=== PATIENT | female | born 1955 | race Caucasian/White ===

== ENCOUNTER → 2023-07-18 07:04 | Outpatient (REF) | payer MEDICARE, BC, SELFPAY ==
[2023-07-18 09:22] LABS: ALT (SGPT) 27 U/L (0-35); AST (SGOT) 32 U/L (14-36); Albumin 3.9 g/dl (3.5-5.0); Alkaline Phosphatase 74 U/L (38-126); Blood Urea Nitrogen 18 mg/dl (7-17); Calcium 9.8 mg/dl (8.4-10.2); Carbon Dioxide 27 mmol/L (22-30); Chloride 104 mmol/L (98-107); Glucose 97 mg/dl (70-99); HDL Cholesterol 46 mg/dl; LDL Cholesterol, Calculated 95 mg/dl; Potassium 4.3 mmol/L (3.5-5.1); Sodium 139 mmol/L (135-145); Total Cholesterol 164 mg/dl (50-199); Total Protein 6.6 g/dl (6.3-8.2); Triglyceride 115 mg/dl (10-149); Very Low Density Lipoprotein 23 mg/dl (0-30); eGFR > 60.00
[2023-07-18 09:51] LABS: TSH Reflex To Free T4 4.76 uIU/ml (0.47-4.68)
[2023-07-18 10:20] LABS: Free T4 0.89 ng/dl (0.78-2.19)
== END ==
LOC: HWLAB 07:04
PROVIDERS: ATTENDING PHYSICIAN Nurse Practitioner Family
DX: Z00.00 Encounter for general adult medical examination without abnormal findings (principal); E78.5 Hyperlipidemia, unspecified; E03.9 Hypothyroidism, unspecified
CPT/HCPCS: 36415; 80053; 80061; 84439; 84443

== ENCOUNTER → 2023-08-22 12:41 | Outpatient (REF) | payer MEDICARE, BC, SELFPAY | LOC: WDC 12:41 | PROVIDERS: ATTENDING PHYSICIAN Nurse Practitioner Family | DX: Z12.31 Encounter for screening mammogram for malignant neoplasm of breast (principal); M85.80 Other specified disorders of bone density and structure, unspecified site; M85.88 Other specified disorders of bone density and structure, other site | CPT/HCPCS: 77063; 77067; 77080 ==

== ENCOUNTER → 2023-09-04 08:45 | Outpatient (REF) | payer MEDICARE, BC, SELFPAY | LOC: WDC 08:45 | PROVIDERS: ATTENDING PHYSICIAN Nurse Practitioner Family | DX: R92.8 Other abnormal and inconclusive findings on diagnostic imaging of breast (principal) | CPT/HCPCS: 76642 ==

== ENCOUNTER → 2023-09-08 09:46 | Outpatient (REF) | payer MEDICARE, BC, SELFPAY ==
--- NOTE | 2023-09-11 09:16 | OID.BR.INTR ---
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
- -
Did not meet patient at time of biopsy. Will follow up per protocol.
== END ==
LOC: WDC 09:46
PROVIDERS: ATTENDING PHYSICIAN Nurse Practitioner Family
DX: N63.12 Unspecified lump in the right breast, upper inner quadrant (principal)
CPT/HCPCS: 88305; 19083; 77065; A4648

== ENCOUNTER → 2023-10-13 13:40 | Outpatient (REF) | payer MEDICARE, BC, SELFPAY | LOC: WDC 13:40 | PROVIDERS: ATTENDING PHYSICIAN Surgery; FAMILY PHYSICIAN Nurse Practitioner Family | DX: R92.2 Inconclusive mammogram (principal) | CPT/HCPCS: 76641 ==

== ENCOUNTER → 2024-01-17 09:50 | Outpatient (REF) | payer MEDICARE, BC, SELFPAY ==
[2024-01-17 13:29] LABS: TSH Reflex To Free T4 2.18 uIU/ml (0.47-4.68)
== END ==
LOC: HWLAB 09:50
PROVIDERS: ATTENDING PHYSICIAN Nurse Practitioner Family
DX: E03.9 Hypothyroidism, unspecified (principal)
CPT/HCPCS: 36415; 84443

== ENCOUNTER → 2024-07-23 06:56 | Outpatient (REF) | payer MEDICARE, BC, SELFPAY ==
[2024-07-23 09:25] LABS: % Basophils 0.7 % (0-2); % Eosinophils 2.1 % (0-6); % Immature Granulocytes 0.2 % (0-0.5); % Lymphocytes 28.6 % (20.5-51.1); % Monocytes 10.3 % (1.7-9.3); % Neutrophils 58.1 % (42.2-75.2); Absolute Basophils 0.1 10^3/uL (0-0.2); Absolute Eosinophils 0.2 10^3/uL (0-0.7); Absolute Lymphocytes 2.5 10^3/uL (1.2-3.4); Absolute Monocytes 0.9 10^3/uL (0.1-0.6); Hematocrit 38.8 % (37.0-47.0); Hemoglobin 13.4 g/dL (12.0-16.0); Mean Corp Hgb Conc. 34.5 g/dL (33.0-37.0); Mean Corpuscular Hgb 31.3 pg (27.0-31.0); Mean Corpuscular Volume 90.7 fL (81.0-99.0); Mean Platelet Volume 9.6 fL (7.4-10.4); Nucleated Red Blood Cells % 0 %; Platelet Count 339 10^3/uL (130-400); Red Blood Cell Count 4.28 10^6/uL (4.20-5.40); Red Cell Dist. Width 12.8 % (11.5-14.5); White Blood Cell Count 8.6 10^3/uL (4.8-10.8)
[2024-07-23 09:48] LABS: ALT (SGPT) 21 U/L (0-35); AST (SGOT) 25 U/L (14-36); Albumin 3.8 g/dl (3.5-5.0); Alkaline Phosphatase 52 U/L (38-126); Blood Urea Nitrogen 15 mg/dl (7-17); Calcium 9.4 mg/dl (8.4-10.2); Carbon Dioxide 25 mmol/L (22-30); Chloride 108 mmol/L (98-107); Glucose 102 mg/dl (70-99); HDL Cholesterol 37 mg/dl; LDL Cholesterol, Calculated 96 mg/dl; Potassium 4.4 mmol/L (3.5-5.1); Sodium 142 mmol/L (135-145); Total Bilirubin 0.9 mg/dl (0.2-1.3); Total Cholesterol 167 mg/dl (50-199); Total Protein 6.3 g/dl (6.3-8.2); Triglyceride 174 mg/dl (10-149); Very Low Density Lipoprotein 34 mg/dl (0-30); eGFR > 60.00
== END ==
LOC: HWLAB 06:56
PROVIDERS: ATTENDING PHYSICIAN Nurse Practitioner Family
DX: E78.5 Hyperlipidemia, unspecified (principal); E66.9 Obesity, unspecified; Z00.00 Encounter for general adult medical examination without abnormal findings
CPT/HCPCS: 36415; 80053; 80061; 85025

== ENCOUNTER → 2024-08-23 13:30 | Outpatient (REF) | payer MEDICARE, BC, SELFPAY | LOC: WDC 13:30 | PROVIDERS: ATTENDING PHYSICIAN Nurse Practitioner Family | DX: Z12.31 Encounter for screening mammogram for malignant neoplasm of breast (principal) | CPT/HCPCS: 77063; 77067 ==

== ENCOUNTER → 2025-01-21 07:20 | Outpatient (REF) | payer MEDICARE, BC, SELFPAY ==
[2025-01-21 10:50] LABS: ALT (SGPT) 23 U/L (0-35); AST (SGOT) 27 U/L (14-36); Albumin 4.4 g/dl (3.5-5.0); Alkaline Phosphatase 62 U/L (38-126); Blood Urea Nitrogen 19 mg/dl (7-17); Calcium 9.5 mg/dl (8.4-10.2); Carbon Dioxide 26 mmol/L (22-30); Chloride 108 mmol/L (98-107); Glucose 95 mg/dl (70-99); Potassium 4.3 mmol/L (3.5-5.1); Sodium 140 mmol/L (135-145); Total Protein 7.1 g/dl (6.3-8.2); eGFR > 60.00
[2025-01-21 11:19] LABS: Glycohemoglobin (HgbA1c) 5.6 % (4.0-5.6)
== END ==
LOC: HWLAB 07:20
PROVIDERS: ATTENDING PHYSICIAN Nurse Practitioner Family
DX: E03.9 Hypothyroidism, unspecified (principal); R73.01 Impaired fasting glucose
CPT/HCPCS: 36415; 80053; 83036; 84443